=== PATIENT | male | born 1985 ===

== ENCOUNTER 2020-11-27 06:30 | Day surgery (SDC) | payer OTHER ==
[2020-11-27] MEDS ORDERED: PERCOCET 5-3251 EACH PO (10:37)
[2020-11-27] MEDS ORDERED: NEURONTIN600 M1 PO (10:38)
[2020-11-27] MEDS ORDERED: SURFAK240 M1 PO (10:38)
[2020-11-27] MEDS ORDERED: POLY119PG PO (10:38)
== END 2020-11-27 14:20 | disposition home or self-care (01) ==
LOC: CIR.AMB 06:30
PROVIDERS: ATTEND Surgery
DX: K42.0 Umbilical hernia with obstruction, without gangrene (principal); K43.0 Incisional hernia with obstruction, without gangrene; Z20.822 Contact with and (suspected) exposure to COVID-19